=== PATIENT | male | born 1950 | race Two or more races ===

== ENCOUNTER 2020-09-22 10:48 | Emergency (ER) | payer OTHER ==
[~2020-09-22] VITALS: Ht 177.8 cm; Wt 72.6 kg
[2020-09-22] MEDS ORDERED: CEFUROXIME500 MG (11:00)
[2020-09-22] MEDS ORDERED: FINASTERIDE5 MG PO (11:01)
== END 2020-09-22 17:23 | disposition home or self-care (01) ==
LOC: ER 10:48
DX: N39.0 Urinary tract infection, site not specified (principal); B96.5 Pseudomonas (aeruginosa) (mallei) (pseudomallei) as the cause of diseases classified elsewhere; R31.0 Gross hematuria; Z03.818 Encounter for observation for suspected exposure to other biological agents ruled out